=== PATIENT | male | born 1985 | race African-American/Black ===

== ENCOUNTER 2017-09-14 14:33 | Emergency (ER) | payer MEDICARE, MEDICAID ==
[~2017-09-14] VITALS: Ht 180.3 cm; Wt 97.5 kg
[2017-09-14 15:03] VITALS: BP 161/105
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
== END 2017-09-14 15:53 | disposition home or self-care (01) ==
LOC: ER 14:33
DX: Z43.0 Encounter for attention to tracheostomy (principal); Z88.8 Allergy status to other drugs, medicaments and biological substances
CPT/HCPCS: 31502; 99284-25